=== PATIENT | female | born 2005 | race Caucasian/White ===

== ENCOUNTER 2024-07-12 10:15 | Emergency (ER) | payer MEDICAID | END 2024-07-12 10:26 | disposition left against medical advice (07) | LOC: MW.ED 10:15 | DX: Z53.21 Procedure and treatment not carried out due to patient leaving prior to being seen by health care provider (principal) ==

== ENCOUNTER 2024-09-25 17:59 | Emergency (ER) | payer SELFPAY | END 2024-09-25 18:15 | disposition critical access hospital (66) | LOC: MW.ED 17:59 | DX: O99.891 Other specified diseases and conditions complicating pregnancy (principal); R03.0 Elevated blood-pressure reading, without diagnosis of hypertension; Z3A.36 36 weeks gestation of pregnancy | CPT/HCPCS: 99281 ==

== ENCOUNTER 2024-09-29 15:49 | Inpatient (IN) | payer BC ==
[2024-09-29] MEDS ORDERED: Ondansetron 4 MG/2 ML SDV IVPUSH PRN (18:33)
[2024-09-29] MEDS ORDERED: Sodium Chloride 0.9% 10 ML Syringe FLUSH PRN (18:33)
[2024-09-29] MEDS ORDERED: Butorphanol 1 MG/ML SDV IVPUSH PRN (18:33)
[2024-09-29] MEDS ORDERED: Carboprost Tromethamine 250 MCG/1 mL Vial IM PRN (18:33)
[2024-09-29] MEDS ORDERED: Water For Irrigation,Sterile 1,000 ML Container IRR PRN (18:33)
[2024-09-29] MEDS ORDERED: Sodium Chloride 0.9% 2.5 ML Syringe FLUSH PRN (18:33)
[2024-09-29 18:44] LABS: MEAN PLATELET VOLUME 9.0 fL (9.4-12.3); NRBC ABSOLUTE 0.00 K/uL (0.00-0.02); NRBC PERCENT 0.0 /100WBC (0.0-0.2); PLATELET COUNT,PLT 344 K/uL (150-400); RED BLOOD CELL COUNT 3.63 M/uL (4.10-5.30); WHITE BLOOD CELL COUNT,WBC 9.54 K/uL (3.9-11.3)
[2024-09-29] MEDS ORDERED: Oxytocin/0.9 % Sodium Chloride 30 UNIT/500 ML BAG IV SCH (18:45)
[2024-09-29] MEDS ORDERED: Terbutaline 1 MG/ML SDV SUBCUT PRN (19:11)
[2024-09-29] MEDS: Lactated Ringers 1,000 ML IV SCH (19:36)
[2024-09-29] MEDS: Oxytocin/0.9 % Sodium Chloride 30 UNIT/500 ML BAG IV SCH (19:37)
[2024-09-29] MEDS ORDERED: ePHEDrine 50 MG/ML SDV IVPUSH PRN (20:55)
[2024-09-29] MEDS ORDERED: dexmedeTOMIDine HCl 200 MCG/2 ML SDV EPIDUR SCH (21:00)
[2024-09-29] MEDS: Ropivacaine HCl/PF 400 MG in Premix Bag 1 BAG EPIDUR SCH (23:00)
[2024-09-30] MEDS ORDERED: Lanolin 100% Cream 7 GM Tube TOP PRN (07:07)
[2024-09-30] MEDS: Witch Hazel Medicated Pads 40/Jar TOP PRN (07:44)
[2024-09-30] MEDS: Benzocaine/Menthol 20%-0.5% Spray 78 GM Cannister TOP PRN (07:44)
[2024-09-30 07:49] LABS: PH,UMBILICAL ARTERIAL 7.27 (7.18-7.38); PH,UMBILICAL VENOUS 7.37 (7.25-7.45)
[2024-10-01] MEDS: Sodium Ferric Gluconate Cmplex 125 MG in Sodium Chloride 0.9% 100 ML IV ONE (11:12)
== END 2024-10-01 14:00 | disposition home or self-care (01) | DRG 560 ==
LOC: MW.OBCHECK 15:49 → MW.OB 15:50 → MW.OBCHECK 17:34 → MW.OB 17:35 → OBSVTOIN 09-30 07:08 → MW.OB 09-30 11:46
PROVIDERS: ADMIT Obstetrics & Gynecology; ATTEND Obstetrics & Gynecology
PROC: 10E0XZZ Delivery of Products of Conception, External Approach (ICD-10-PCS; principal; 2024-09-30)
PROC: 3E033VJ Introduction of Other Hormone into Peripheral Vein, Percutaneous Approach (ICD-10-PCS; 2024-09-30)
PROC: 3E0R3BZ Introduction of Anesthetic Agent into Spinal Canal, Percutaneous Approach (ICD-10-PCS; 2024-09-30)
PROC: 00HU33Z Insertion of Infusion Device into Spinal Canal, Percutaneous Approach (ICD-10-PCS; 2024-09-30)
DX: O42.013 Preterm premature rupture of membranes, onset of labor within 24 hours of rupture, third trimester (principal); Z37.0 Single live birth; O60.14X0 Preterm labor third trimester with preterm delivery third trimester, not applicable or unspecified; O99.02 Anemia complicating childbirth; Z88.0 Allergy status to penicillin; O13.4 Gestational [pregnancy-induced] hypertension without significant proteinuria, complicating childbirth; D50.9 Iron deficiency anemia, unspecified; O70.0 First degree perineal laceration during delivery; Z3A.36 36 weeks gestation of pregnancy
CPT/HCPCS: 36415; 51702; 59025; 59409; 82803; 84112; 85014; 85018; 85027; 86592; 86762; 86850; 86900; 86901; 87340; A9270-GY; J0665; J2590; J2795; J2916; J7120

== ENCOUNTER 2024-11-12 21:08 | Emergency (ER) | payer BC | END 2024-11-12 22:40 | disposition home or self-care (01) | LOC: MW.ED 21:08 | DX: S93.401A Sprain of unspecified ligament of right ankle, initial encounter (principal); I10 Essential (primary) hypertension; Z88.0 Allergy status to penicillin; Z91.030 Bee allergy status; Z79.899 Other long term (current) drug therapy; W10.9XXA Fall (on) (from) unspecified stairs and steps, initial encounter; Y93.89 Activity, other specified | CPT/HCPCS: 73610; 73630; 99284; A9270; 99283 ==

== ENCOUNTER 2024-11-24 03:13 | Emergency (ER) | payer BC, MEDICAID, OTHER ==
[2024-11-24 03:24] LABS: BASOPHILS ABSOLUTE AUTO 0.03 K/uL (0.00-0.20); BASOPHILS PERCENT AUTO 0.3 % (0.0-1.0); EOSINOPHILS ABSOLUTE AUTO 0.05 K/uL (0.00-0.45); EOSINOPHILS PERCENT AUTO 0.5 % (0.0-6.0); IMMATURE GRAN ABSOLUTE AUTO 0.03 K/uL (0.00-0.05); IMMATURE GRAN PERCENT AUTO 0.3 % (0.0-0.4); LYMPHOCYTES ABSOLUTE AUTO 3.07 K/uL (1.00-4.80); LYMPHOCYTES PERCENT AUTO 32.2 % (24.0-44.0); MEAN PLATELET VOLUME 8.7 fL (9.4-12.3); MONOCYTES ABSOLUTE AUTO 0.57 K/uL (0.00-0.80); MONOCYTES PERCENT AUTO 6.0 % (0.0-8.0); NEUTROPHILS ABSOLUTE AUTO 5.78 K/uL (1.80-7.70); NEUTROPHILS PERCENT AUTO 60.7 % (41.0-71.0); NRBC ABSOLUTE 0.00 K/uL (0.00-0.02); NRBC PERCENT 0.0 /100WBC (0.0-0.2); PLATELET COUNT,PLT 316 K/uL (150-400); RED BLOOD CELL COUNT 4.39 M/uL (4.10-5.30); WHITE BLOOD CELL COUNT,WBC 9.53 K/uL (3.9-11.3)
[2024-11-24] MEDS: Lactated Ringers 1,000 ML IV ONE (03:24)
[2024-11-24] MEDS: Ondansetron 4 MG/2 ML SDV IVPUSH ONE ×2 (03:25→07:48)
[2024-11-24 03:52] LABS: BLOOD UREA NITROGEN,BUN 14 mg/dL (7.0-18.0); CARBON DIOXIDE,CO2 23.1 mmol/L (21.0-32.0); CHLORIDE,CL 102 mmol/L (98-107); CREATININE 0.9 mg/dL (0.6-1.0); ESTIMATED GFR 94 mL/min (>60); GLUCOSE RANDOM 93 mg/dL (74-106); POTASSIUM,K 3.9 mmol/L (3.5-5.1); SODIUM,NA 138 mmol/L (136-145)
[2024-11-24] MEDS: Iopamidol 755 MG/ML 500 ML Multipack Bottle IVPUSH STA (04:29)
[2024-11-24] MEDS: Ketorolac 30 MG/ML SDV IVPUSH ONE (06:11)
[2024-11-24] MEDS: Acetaminophen/HYDROcodone 325-5 MG Tab PO ONE (09:52)
== END 2024-11-24 10:54 | disposition home or self-care (01) ==
LOC: MW.ED 03:13
DX: R10.31 Right lower quadrant pain (principal); Z88.0 Allergy status to penicillin; Z91.030 Bee allergy status; Z88.1 Allergy status to other antibiotic agents; Z79.899 Other long term (current) drug therapy
CPT/HCPCS: 36415; 74177; 76857; 80048; 84703; 85025; A9270; J1171; J1885; J2270; J2405; J7120; Q9967; 99283